=== PATIENT | female | born 1935 | race Caucasian/White ===

== ENCOUNTER → 2023-04-03 08:04 | Outpatient (REF) | payer OTHER, SELFPAY | LOC: HWRCS 08:04 | PROVIDERS: ATTENDING PHYSICIAN Internal Medicine Cardiovascular Disease; FAMILY PHYSICIAN Family Medicine | DX: I47.10 Supraventricular tachycardia, unspecified (principal) | CPT/HCPCS: 93306 ==

== ENCOUNTER → 2023-04-10 07:13 | Outpatient (REF) | payer OTHER, SELFPAY ==
[2023-04-10] MEDS: LEXISCAN 0.400000000000000022 MG IV (09:12)
[2023-04-10] MEDS: FLUSH (NSS) 1 FLUSH IV (09:14)
[2023-04-10] MEDS: AMINOPHYLLINE 75 MG IV (11:26)
== END ==
LOC: RCS 07:13
PROVIDERS: ATTENDING PHYSICIAN Internal Medicine Cardiovascular Disease; FAMILY PHYSICIAN Family Medicine
DX: I47.10 Supraventricular tachycardia, unspecified (principal)
CPT/HCPCS: 78452; 93017; A9500; J2785

== ENCOUNTER → 2023-07-03 13:36 | Outpatient (REF) | payer OTHER, SELFPAY | LOC: RAD 13:36 | PROVIDERS: ATTENDING PHYSICIAN Physician Assistant | DX: M25.572 Pain in left ankle and joints of left foot (principal) | CPT/HCPCS: 73600; 73630 ==

== ENCOUNTER → 2023-12-22 11:05 | Outpatient (REF) | payer OTHER, SELFPAY ==
[2023-12-22 11:36] LABS: % Basophils 0.9 % (0-2); % Eosinophils 5.2 % (0-6); % Immature Granulocytes 0.3 % (0-0.5); % Lymphocytes 23.2 % (20.5-51.1); % Monocytes 9.8 % (1.7-9.3); % Neutrophils 60.6 % (42.2-75.2); Absolute Basophils 0.1 10^3/uL (0-0.2); Absolute Eosinophils 0.5 10^3/uL (0-0.7); Absolute Lymphocytes 2.1 10^3/uL (1.2-3.4); Absolute Monocytes 0.9 10^3/uL (0.1-0.6); Absolute Neutrophils 5.4 10^3/uL (1.4-6.5); Hematocrit 39.5 % (37.0-47.0); Hemoglobin 13.7 g/dL (12.0-16.0); Mean Corp Hgb Conc. 34.7 g/dL (33.0-37.0); Mean Corpuscular Hgb 32.5 pg (27.0-31.0); Mean Corpuscular Volume 93.8 fL (81.0-99.0); Mean Platelet Volume 10.3 fL (7.4-10.4); Nucleated Red Blood Cells % 0 %; Platelet Count 237 10^3/uL (130-400); Red Blood Cell Count 4.21 10^6/uL (4.20-5.40); Red Cell Dist. Width 13.4 % (11.5-14.5); White Blood Cell Count 8.9 10^3/uL (4.8-10.8)
[2023-12-22 12:05] LABS: ALT (SGPT) 23 U/L (0-35); AST (SGOT) 29 U/L (14-36); Albumin 4.4 g/dl (3.5-5.0); Alkaline Phosphatase 83 U/L (38-126); Blood Urea Nitrogen 29 mg/dl (7-17); Calcium 9.8 mg/dl (8.4-10.2); Carbon Dioxide 22 mmol/L (22-30); Chloride 103 mmol/L (98-107); Glucose 102 mg/dl (70-99); HDL Cholesterol 48 mg/dl; LDL Cholesterol, Calculated 114 mg/dl; Potassium 4.6 mmol/L (3.5-5.1); Sodium 140 mmol/L (135-145); Total Bilirubin 0.7 mg/dl (0.2-1.3); Total Cholesterol 183 mg/dl (50-199); Total Protein 6.9 g/dl (6.3-8.2); Triglyceride 105 mg/dl (10-149); Very Low Density Lipoprotein 21 mg/dl (0-30); eGFR 44.08
== END ==
LOC: OLABWIL 11:05
PROVIDERS: ATTENDING PHYSICIAN Family Medicine
DX: D69.3 Immune thrombocytopenic purpura (principal); I12.9 Hypertensive chronic kidney disease with stage 1 through stage 4 chronic kidney disease, or unspecified chronic kidney disease; M85.89 Other specified disorders of bone density and structure, multiple sites; I70.1 Atherosclerosis of renal artery; E74.39 Other disorders of intestinal carbohydrate absorption; N18.32 Chronic kidney disease, stage 3b
CPT/HCPCS: 36415; 80053; 80061; 85025

== ENCOUNTER → 2024-06-09 06:43 | Outpatient (REF) | payer OTHER, SELFPAY | LOC: RAD 06:43 | PROVIDERS: ATTENDING PHYSICIAN Surgery Vascular Surgery; FAMILY PHYSICIAN Family Medicine | DX: I70.1 Atherosclerosis of renal artery (principal) | CPT/HCPCS: 93975 ==

== ENCOUNTER → 2024-07-15 08:55 | Outpatient (REF) | payer OTHER, SELFPAY | LOC: WDC 08:55 | PROVIDERS: ATTENDING PHYSICIAN Family Medicine | DX: Z85.3 Personal history of malignant neoplasm of breast (principal) | CPT/HCPCS: 77063; 77067 ==

== ENCOUNTER → 2024-10-28 08:53 | Outpatient (REF) | payer OTHER, SELFPAY | LOC: HWRAD 08:53 | DX: M54.50 Low back pain, unspecified (principal) | CPT/HCPCS: 72110 ==